=== PATIENT | female | born 1955 | race Caucasian/White ===

== ENCOUNTER 2020-07-31 10:40 | Emergency (ER) | payer OTHER ==
--- OUTSIDE RECORDS SUMMARY | 2020-07-31 10:43 | XMS REPORT | Continuity of Care Document ---
:1955 Author Organization [facility] Address [address] [place] [address] Care Team Providers Name Role Phone ABEL Attending Clinician Unavailable TC Attending Clinician Unavailable LINDA Attending Clinician Unavailable JACQUELINE Attending Clinician Unavailable REHRER Attending Clinician Unavailable PATTIE Attending Clinician Unavailable ABEL Admitting Clinician Unavailable PATTIE Admitting Clinician Unavailable Problems This patient has no known problems. Allergies, Adverse Reactions, Alerts This patient has no known allergies or adverse reactions. Medications This patient has no known medications. Procedures This patient has no known procedures. Encounters Start End Encounter Admission Attending Care Care Encounter Source Date/Time Date/Time Type Type Clinicians Facility Department ID 2020-07-29 2020-07-[address] [facility] [id number] [place] 00:00:00 00:00:00 RAYAN 000 [facility] i 2020-07-27 2020-07-27 Outpatient [facility] [id number] [place] 00:00:00 00:00:00 BELLA 916 Method i 2020-07-27 2020-07-27 Outpatient [facility] [id number] [place] 00:00:00 00:00:00 BELLA 968 Method i 2020-07-27 2020-07-27 Outpatient [facility] [id number] [place] 00:00:00 00:00:00 BELLA 153 Method i 2020-07-27 2020-07-27 Outpatient [facility] [id number] [place] 00:00:00 00:00:00 BELLA 450 Method i 2020-07-27 2020-07-27 Outpatient [facility] [id number] [place] 00:00:00 00:00:00 BELLA 683 Method i 2020-07-27 2020-07-27 Outpatient BHIMARA, [facility] [id number] [place] 00:00:00 00:00:00 BELLA 449 Method i 2020-07-27 2020-07-27 Outpatient BHIMARAJ, [facility] [id number] [place] 00:00:00 00:00:00 BELLA 443 Method i 2020-07-10 2020-07-10 Outpatient LINDA, [facility] [id number] [place] 00:00:00 00:00:00 AHMED 834 Method i 2020-06-19 2020-06-19 Outpatient IMARA, [facility] [id number] [place] 00:00:00 00:00:00 BELLA 103 Method i 2020-06-04 2020-06-04 Outpatient PHILLIPS, [facility] [id number] [place] 00:00:00 00:00:00 PATRICIA 265 Method i 2020-06-01 2020-06-01 Outpatient PHILLIPS, [facility] [id number] [place] 00:00:00 00:00:00 PATRICIA 109 Method i 2019-07-15 2019-07-15 Outpatient [facility], [facility] [id number] [place] 00:00:00 00:00:00 BELLA 486 Method i 2019-07-13 2019-07-13 Emergency REHRER, [facility] [id number] [place] 00:00:00 00:00:00 KHUSHI 518 Method i 2019-07-10 2019-07-10 Outpatient [facility] [id number] [place] 00:00:00 00:00:00 DAX Velazquez [address] 2019-07-09 2019-07-09 Outpatient [facility], [facility] [id number] [place] 00:00:00 00:00:00 BELLA 033 Method i 2019-07-09 2019-07-09 Outpatient [facility], [facility] [id number] [place] 00:00:00 00:00:00 BELLA 443 Method i 2019-07-09 2019-07-09 [facility] [id number] [place] 00:00:00 00:00:00 BELLA [address] 2019-07-09 2019-07-09 Outpatient [facility] [id number] [place] 00:00:00 00:00:00 BELLA [address] 2019-07-09 2019-07-09 Outpatient [facility] [id number] [place] 00:00:00 00:00:00 BELLA [address] 2019-07-09 2019-07-09 Outpatient [facility] [id number] [place] 00:00:00 00:00:00 BELLA [address] Results This patient has no known results.
[2020-07-31] MEDS ORDERED: METHYLPREDNISOLONE 125 MG INJ ONE (11:42)
--- NOTE | 2020-07-31 11:56 | ER ---
Nurse's Notes [facility] Name: Nena Burrows Age: 65 yrs Sex: Female : 1955 Arrival Date: 07/31/2020 Time: 10:43 Bed 17 Private MD: Diagnosis: Allergic contact dermatitis Presentation: 07/31 10:58 Chief complaint: Patient states: Had a procedure done at [facility]. I think it ca1 was the EKG leads/tape that caused the rashes on my body. The rashes came out the same day and it just got worse and worse. C/O of itching at this time. Had reactions to those before but not this bad. Took Benadryl with a little relief. Denies difficulty breathing. Coronavirus screen: Client denies travel out of the [place] in the last 14 days. At this time, the client does not indicate any symptoms associated with coronavirus-19. Ebola Screen: Patient negative for fever greater than or equal to 101.5 degrees Fahrenheit, and additional compatible Ebola Virus Disease symptoms Patient denies exposure to infectious person. Patient denies travel to an Ebola-affected area in the 21 days before illness onset. No symptoms or risks identified at this time. Initial Sepsis Screen: Does the patient meet any 2 criteria? Yes Does the patient have a suspected source of infection? No. Patient's initial sepsis screen is negative. Risk Assessment: Do you want to hurt yourself or someone else? Patient reports no desire to harm self or others. Onset of symptoms was July 29, 2020. 10:58 Method Of Arrival: Ambulatory ca1 10:58 Acuity: CARINE 4 ca1 11:10 Anaphylaxis evaluation, no signs or symptoms of anaphylaxis were noted. rb3 11:10 Onset: The symptoms/episode began/occurred 2 day(s) ago. rb3 Historical: - Allergies: 11:04 Levaquin; ca1 11:04 Codeine; ca1 - Home Meds: 11:04 aspirin 81 mg Oral chew [Active]; ca1 - PMHx: 11:04 None; ca1 - PSHx: 11:04 heart transplant; Heart stents; ca1 - Immunization history:: Flu vaccine is not up to date. - Social history:: Smoking status: Patient denies any tobacco usage or history of. Screenin:10 Abuse screen: Denies threats or abuse. Nutritional screening: No deficits noted. rb3 Tuberculosis screening: No symptoms or risk factors identified. Fall Risk None identified. Assessment: 11:10 General: Appears in no apparent distress. comfortable, Behavior is calm, cooperative. rb3 Pain: Denies pain. Neuro: Level of Consciousness is awake, alert, obeys commands, Oriented to person, place, time, situation. Cardiovascular: Patient's skin is warm and dry. Respiratory: Airway is patent Respiratory effort is even, unlabored, Respiratory pattern is regular, symmetrical. GI: No signs and/or symptoms were reported involving the gastrointestinal system. : No signs and/or symptoms were reported regarding the genitourinary system. Derm: Rash noted that is red, on chest Red circular spots noted where the EKG electrodes were place. PT. c/o itching. 12:09 Reassessment: Patient appears in no apparent distress at this time. No changes from rb3 previously documented assessment. Vital Signs: 10:58 BP 139 / 68; Pulse 87; Resp 16 S; Temp 97.1(TE); Pulse Ox 100% on R/A; Weight 65.77 kg ca1 (R); Height 5 ft. 1 in. (154.94 cm) (R); Pain 0/10; 12:09 BP 132 / 66; Pulse 88; Resp 16; Pulse Ox 100% ; rb3 10:58 Body Mass Index 27.40 (65.77 kg, 154.94 cm) ca1 ED Course: 10:43 Patient arrived in ED. as 11:01 Triage completed. ca1 11:04 Arm band placed on right wrist. ca1 11:10 Patient has correct armband on for positive identification. Bed in low position. Call rb3 light in reach. Side rails up X 1. Pulse ox on. NIBP on. 11:15 Keenan Meyer PA is PHCP. cp 11:15 Keenan Cooper MD is Attending Physician. cp 11:17 Claudia Delgado, GERI is Primary Nurse. rb3 12:30 No provider procedures requiring assistance completed. Patient did not have IV access iw during this emergency room visit. Administered Medications: 11:30 Drug: SOLU-Medrol 125 mg Route: IM; Site: right gluteus; rb3 11:45 Follow up: Response: No adverse reaction rb3 Outcome: 11:55 Discharge ordered by . cp 12:30 Discharged to home ambulatory. iw 12:30 Condition: good 12:30 Discharge instructions given to patient, Instructed on discharge instructions, follow up and referral plans. medication usage, Demonstrated understanding of instructions, follow-up care, medications, Prescriptions given X 2. 12:30 Patient left the ED. iw Signatures: Olga Saucedo Irene RN RN iw Keenan Meyer PA PA cp Acob, Cheryl RN RN ca1 Claudia Delgado RN RN rb3
--- NOTE | 2020-07-31 11:57 | EDPHYS ---
Physician Documentation [facility] Name: Nena Burrows Age: 65 yrs Sex: Female : 1955 Arrival Date: 07/31/2020 Time: 10:43 Bed 17 Private MD: Keenan Interiano HPI: 07/31 11:25 This 65 yrs old Female presents to ER via Ambulatory with complaints of cp Allergic Reaction, Rash. 11:25 The patient presents with rash, of the chest. Onset: The symptoms/episode cp began/occurred 2 day(s) ago. Associated signs and symptoms: Pertinent positives: itching in areas of rash. At home the patient or guardian has treated the symptoms with OTC Benadryl cream. Patient reports having cardiac cath performed [address] [facility]. Reports noticing itching and rash in areas where cardiac electrodes were placed. Patient denies shortness of breath, difficulty swallowing and/or sensation of throat closing. Historical: - Allergies: 11:04 Levaquin; ca1 11:04 Codeine; ca1 - Home Meds: 11:04 aspirin 81 mg Oral chew [Active]; ca1 - PMHx: 11:04 None; ca1 - PSHx: 11:04 heart transplant; Heart stents; ca1 - Immunization history:: Flu vaccine is not up to date. - Social history:: Smoking status: Patient denies any tobacco usage or history of. ROS: 11:30 Skin: Positive for rash, of the chest. cp 11:30 Constitutional: Negative for body aches, chills, fever. cp 11:30 ENT: Negative for sore throat, difficulty swallowing, difficulty handling secretions. 11:30 Respiratory: Negative for cough, shortness of breath, wheezing. 11:30 All other systems are negative. Exam: 11:35 Constitutional: The patient appears in no acute distress, alert, awake, non-toxic, well cp developed, well nourished. 11:35 Head/Face: Normocephalic, atraumatic. cp 11:35 Eyes: Periorbital structures: appear normal, Conjunctiva: normal, no exudate, no injection, Lids and lashes: appear normal, bilaterally. 11:35 ENT: External ear(s): are unremarkable, Nose: is normal, Mouth: Lips: moist, Oral mucosa: moist, Posterior pharynx: Airway: no evidence of obstruction, patent. 11:35 Chest/axilla: Palpation: crepitus, is not appreciated, tenderness, is not appreciated. 11:35 Cardiovascular: Rate: normal, Rhythm: regular, Edema: is not appreciated, JVD: is not appreciated. 11:35 Respiratory: the patient does not display signs of respiratory distress, Respirations: normal, no use of accessory muscles, no retractions, labored breathing, is not present, Breath sounds: are clear throughout, no decreased breath sounds, no stridor, no wheezing. 11:35 Skin: rash can be described as erythematous, on the chest and abdomen, in areas of electrode placement. Vital Signs: 10:58 BP 139 / 68; Pulse 87; Resp 16 S; Temp 97.1(TE); Pulse Ox 100% on R/A; Weight 65.77 kg ca1 (R); Height 5 ft. 1 in. (154.94 cm) (R); Pain 0/10; 12:09 BP 132 / 66; Pulse 88; Resp 16; Pulse Ox 100% ; rb3 10:58 Body Mass Index 27.40 (65.77 kg, 154.94 cm) ca1 MDM: 11:22 Patient medically screened. cp 11:45 Differential diagnosis: anaphylaxis, angioedema, urticaria, contact dermatitis, cp irritant dermatitis. 11:55 Data reviewed: vital signs, nurses notes, and as a result, I will discharge patient. cp 11:55 Counseling: I had a detailed discussion with the patient and/or guardian regarding: the cp historical points, exam findings, and any diagnostic results supporting the discharge/admit diagnosis. ED course: VSS. No signs of anaphylaxis. Will discharge to home for continued monitoring. Administered Medications: 11:30 Drug: SOLU-Medrol 125 mg Route: IM; Site: right gluteus; rb3 11:45 Follow up: Response: No adverse reaction rb3 Disposition: 12:35 Chart complete. cp Disposition: 07/31/20 11:55 Discharged to Home. Impression: Allergic contact dermatitis. - Condition is Stable. - Discharge Instructions: Contact Dermatitis. - Prescriptions for Hydrocortisone 0.5 % Topical Cream - apply 1 application by TOPICAL route every 12 hours As needed; 30 gram. Prednisone 20 mg Oral Tablet - take 2 tablet by ORAL route once daily for 5 days; 10 tablet. - Medication Reconciliation Form, Thank You Letter, Antibiotic Education, Prescription Opioid Use form. - Follow up: Private Physician; When: 2 - 3 days; Reason: Recheck today's complaints. - Problem is new. - Symptoms have improved. Addendum: 08/02/2020 09:08 Co-signature as Attending Physician, Keenan Cooper MD I agree with the assessment and c knox plan of care. Signatures: Keenan Cooper MD MD cha Williams, Irene RN RN iw Keenan Meyer PA PA cp July Contreras, RN RN [facility] Claudia Delgado RN RN rb3 Corrections: (The following items were deleted from the chart) 07/31 12:30 11:55 07/31/2020 11:55 Discharged to Home. Impression: Allergic contact dermatitis. iw Condition is Stable. Forms are Medication Reconciliation Form, Thank You Letter, Antibiotic Education, Prescription Opioid Use. Follow up: Private Physician; When: 2 - 3 days; Reason: Recheck today's complaints. Problem is new. Symptoms have improved. cp
[2020-07-31 12:35] VITALS: BP 139/68; TEMP 97.1; O2SAT 100
== END 2020-07-31 12:30 | disposition home or self-care (01) ==
LOC: ER 10:40
DX: L23.9 Allergic contact dermatitis, unspecified cause (principal); Z94.1 Heart transplant status; Z95.818 Presence of other cardiac implants and grafts; Z79.82 Long term (current) use of aspirin; Z88.1 Allergy status to other antibiotic agents; Z88.5 Allergy status to narcotic agent
CPT/HCPCS: 96372; 99283; J2930

== ENCOUNTER 2021-03-05 16:01 | Emergency (ER) | payer OTHER ==
[2021-03-05 17:24] LABS: Protime INR 0.98
[2021-03-05 17:27] LABS: Absolute Lymphocytes (CBC) 1.7 K/uL (0.7-4.9); Basophils % 0.9 % (0-1.3); Hematocrit 39.9 % (36.0-45.0); Lymphocytes % 26.2 % (15.3-44.8); MPV 7.8 fL (7.6-11.3); RBC Red Blood Cell Count 4.76 M/uL (3.86-4.86)
[2021-03-05] MEDS ORDERED: NA CHLORIDE 0.9% 1,000 ML ONE (17:31)
[2021-03-05 17:38] LABS: ALT/SGPT 35 U/L (12-78); AST/SGOT 26 U/L (15-37); Albumin 3.6 g/dL (3.4-5.0); Alkaline Phosphatase 92 U/L (45-117); BUN Blood Urea Nitrogen 25 mg/dL (7-18); Bicarbonate 22 mmol/L (21-32); Bilirubin Direct < 0.1 mg/dL (0-0.2); Bilirubin Total 0.3 mg/dL (0.2-1.0); Glucose Level 137 mg/dL (74-106); Magnesium 2.2 mg/dL (1.8-2.4); NT PRO-BNP 304 pg/mL (<125); Potassium 4.1 mmol/L (3.5-5.1); Protein, Total 7.8 g/dL (6.4-8.2); Sodium Level 139 mmol/L (136-145); Troponin (Emerg Dept Use Only) < 0.02 ng/mL (0.0-0.045)
--- NOTE | 2021-03-05 17:42 | RAD REPORT ---
EXAM DESCRIPTION: RAD - Chest Single View - 03/05/2021 5:05 pm CLINICAL HISTORY: palpitation COMPARISON: No comparisons FINDINGS: Lines: None. Lungs: No evidence of edema or pneumonia. Pleural: No significant pleural effusions or pneumothorax. Cardiac: The heart size is within normal limits. Bones: No acute fractures. Remote rib fractures. Other: Sternotomy. IMPRESSION: No acute cardiopulmonary disease.
--- NOTE | 2021-03-05 18:31 | EDPHYS ---
Physician Documentation [facility] Name: Nena Burrows Age: 65 yrs Sex: Female : 1955 Arrival Date: 03/05/2021 Time: 16:02 Bed 19 Private MD: ED Physician Kamilla Navarro HPI: 03/05 16:33 This 65 yrs old Female presents to ER via Wheelchair with complaints of ma2 Palpitations. 16:33 The patient presents with a history of heart racing. Onset: The symptoms/episode ma2 began/occurred gradually, 1 hour(s) ago. Associated signs and symptoms: Pertinent negatives: cough, SOB, near-syncope, unusual stressors. Severity of symptoms: At their worst the symptoms were very mild in the emergency department the symptoms have resolved. The patient has not experienced similar symptoms in the past. all started after she tried cbd gum. Historical: - Allergies: 16:08 Codeine; aa5 16:08 Levaquin; aa5 - PMHx: 16:09 Heart Transplant; aa5 16:11 Hypertensive disorder; aa5 - PSHx: 16:09 Heart stent; Heart Transplant; aa5 - Immunization history:: Client reports receiving the 2nd dose of the Covid vaccine. - Social history:: Smoking status: Patient denies any tobacco usage or history of. Patient/guardian denies using alcohol, street drugs, The patient lives with family. - Family history:: not pertinent. ROS: 16:33 Constitutional: Negative for fever, chills, and weight loss. ma2 16:33 All other systems are negative. Exam: 16:33 Constitutional: This is a well developed, well nourished patient who is awake, alert, ma2 and in no acute distress. Head/Face: Normocephalic, atraumatic. Eyes: Pupils equal round and reactive to light, extra-ocular motions intact. Lids and lashes normal. Conjunctiva and sclera are non-icteric and not injected. Cornea within normal limits. Periorbital areas with no swelling, redness, or edema. ENT: Nares patent. No nasal discharge, no septal abnormalities noted. Tympanic membranes are normal and external auditory canals are clear. Oropharynx with no redness, swelling, or masses, exudates, or evidence of obstruction, uvula midline. Mucous membranes moist. Neck: Trachea midline, no thyromegaly or masses palpated, and no cervical lymphadenopathy. Supple, full range of motion without nuchal rigidity, or vertebral point tenderness. No Meningismus. Chest/axilla: Normal chest wall appearance and motion. Nontender with no deformity. No lesions are appreciated. Cardiovascular: Regular rate and rhythm with a normal S1 and S2. No gallops, murmurs, or rubs. Normal PMI, no JVD. No pulse deficits. Respiratory: Lungs have equal breath sounds bilaterally, clear to auscultation and percussion. No rales, rhonchi or wheezes noted. No increased work of breathing, no retractions or nasal flaring. Abdomen/GI: Soft, non-tender, with normal bowel sounds. No distension or tympany. No guarding or rebound. No evidence of tenderness throughout. Skin: Warm, dry with normal turgor. Normal color with no rashes, no lesions, and no evidence of cellulitis. MS/ Extremity: Pulses equal, no cyanosis. Neurovascular intact. Full, normal range of motion. Neuro: Awake and alert, GCS 15, oriented to person, place, time, and situation. Cranial nerves II-XII grossly intact. Motor strength 5/5 in all extremities. Sensory grossly intact. Cerebellar exam normal. Normal gait. Vital Signs: 16:07 BP 125 / 79; Pulse 98; Resp 16 S; Temp 97.3(TE); Pulse Ox 95% on R/A; Weight 65.77 kg aa5 (R); Height 5 ft. 2 in. (157.48 cm) (R); Pain 0/10; 16:33 BP 123 / 86; Pulse 86; Resp 18; Temp 97.6; Pulse Ox 99% on R/A; sl2 17:00 BP 107 / 62; Pulse 87; Resp 18; Temp 97.6; Pulse Ox 98% on R/A; sl2 18:00 BP 112 / 69; Pulse 85; Resp 18; Temp 97.8; Pulse Ox 99% on R/A; sl2 18:45 BP 117 / 67; Pulse 93; Resp 18; Temp 97.8; Pulse Ox 99% on R/A; sl2 16:07 Body Mass Index 26.52 (65.77 kg, 157.48 cm) aa5 MDM: 16:31 Patient medically screened. ma2 16:33 Differential diagnosis: arrythmia, dehydration, stress disorder. Data reviewed: vital ma2 signs, nurses notes. 18:29 Counseling: I had a detailed discussion with the patient and/or guardian regarding: the ma2 historical points, exam findings, and any diagnostic results supporting the discharge/admit diagnosis, the presence of at least one elevated blood pressure reading (>120/80) during this emergency department visit, the need for outpatient follow up. Response to treatment: the patient's symptoms have resolved after treatment. 03/05 16:26 Order name: Basic Metabolic Panel; Complete Time: 17:49 ma2 03/05 16:26 Order name: CBC with Diff; Complete Time: 17:49 ma2 03/05 16:26 Order name: LFT's; Complete Time: 17:49 ma2 03/05 16:26 Order name: Magnesium; Complete Time: 17:49 ma2 03/05 16:26 Order name: NT PRO-BNP; Complete Time: 17:49 ma2 03/05 16:26 Order name: PT-INR; Complete Time: 17:49 ma2 03/05 16:26 Order name: Troponin (emerg Dept Use Only); Complete Time: 17:49 ma2 03/05 16:26 Order name: XRAY Chest (1 view); Complete Time: 17:49 ma2 03/05 16:26 Order name: EKG; Complete Time: 16:27 ma2 03/05 16:26 Order name: Cardiac monitoring; Complete Time: 16:46 ma2 03/05 16:26 Order name: EKG - Nurse/Tech; Complete Time: 16:46 ma2 03/05 16:26 Order name: IV Saline Lock; Complete Time: 16:53 ma2 03/05 16:26 Order name: Labs collected and sent; Complete Time: 18:47 ma2 03/05 16:26 Order name: O2 Per Protocol; Complete Time: 16:53 ma2 03/05 16:26 Order name: O2 Sat Monitoring; Complete Time: 16:53 ma2 Administered Medications: 17:10 Drug: NS 0.9% 1000 ml Route: IV; Rate: 1 bolus; Site: left hand; sl2 19:00 Follow up: Response: No adverse reaction; IV Status: Completed infusion; IV Intake: sl2 1000ml Disposition Summary: 03/05/21 18:30 Discharge Ordered Location: Home ma2 Condition: Stable ma2 Diagnosis - Poisoning by other drugs, medicaments and biological substances, accidental ma2 (unintentional) Followup: ma2 - With: Private Physician - When: Tomorrow - Reason: Continuance of care Discharge Instructions: - Discharge Summary Sheet ma2 - Dizziness, [id number] ma2 Forms: - Medication Reconciliation Form ma2 - Thank You Letter ma2 - Antibiotic Education ma2 - Prescription Opioid Use ma2 Signatures: Dispatcher [employer] [place] Nena Maki, RN RN aa5 Kamilla Navarro MD MD ma2 Guadalupe Miller RN RN sl2
--- NOTE | 2021-03-05 18:31 | ER ---
Nurse's Notes [facility] Name: Nena Burrows Age: 65 yrs Sex: Female : 1955 Arrival Date: 03/05/2021 Time: 16:02 Bed 19 Private MD: Diagnosis: Poisoning by other drugs, medicaments and biological substances, accidental (unintentional) Presentation: 03/05 16:07 Chief complaint: Patient states: son gave her a CBD gummie and started feeling aa5 palpitations after. Pt also states "I feel like I am in a fog". Coronavirus screen: At this time, the client does not indicate any symptoms associated with coronavirus-19. Ebola Screen: No symptoms or risks identified at this time. Initial Sepsis Screen: Does the patient meet any 2 criteria? HR > 90 bpm. Does the patient have a suspected source of infection? No. Patient's initial sepsis screen is negative. Risk Assessment: Do you want to hurt yourself or someone else? Patient reports no desire to harm self or others. Onset of symptoms was February 2021. 16:07 Method Of Arrival: Wheelchair aa5 16:07 Acuity: CARINE 3 aa5 19:32 Note Pt A\\T\\Ox4. Called family for ride home. df1 Triage Assessment: 16:10 General: Appears in no apparent distress. well groomed, Behavior is calm, cooperative, sl2 drowsy. Historical: - Allergies: 16:08 Codeine; aa5 16:08 Levaquin; aa5 - PMHx: 16:09 Heart Transplant; aa5 16:11 Hypertensive disorder; aa5 - PSHx: 16:09 Heart stent; Heart Transplant; aa5 - Immunization history:: Client reports receiving the 2nd dose of the Covid vaccine. - Social history:: Smoking status: Patient denies any tobacco usage or history of. Patient/guardian denies using alcohol, street drugs, The patient lives with family. - Family history:: not pertinent. Screenin:54 Abuse screen: Denies threats or abuse. Nutritional screening: No deficits noted. sl2 Tuberculosis screening: No symptoms or risk factors identified. Fall Risk Gait- Impaired (20 pts.). Assessment: 16:54 Pain: Denies pain. Neuro: No deficits noted. Neuro: No deficits noted. Reports sl2 dizziness, since eating gummies with unkown substance that she was told would "just make her feel calm". Cardiovascular: No deficits noted. Respiratory: No deficits noted. GI: No deficits noted. GI: No deficits noted. : No deficits noted. EENT: No deficits noted. Derm: No deficits noted. Musculoskeletal: No deficits noted. 16:59 Reassessment: Patient c/o dizziness and lightheartedness with impaired gait after sl2 eating a CBD gummie. Vital Signs: 16:07 BP 125 / 79; Pulse 98; Resp 16 S; Temp 97.3(TE); Pulse Ox 95% on R/A; Weight 65.77 kg aa5 (R); Height 5 ft. 2 in. (157.48 cm) (R); Pain 0/10; 16:33 BP 123 / 86; Pulse 86; Resp 18; Temp 97.6; Pulse Ox 99% on R/A; sl2 17:00 BP 107 / 62; Pulse 87; Resp 18; Temp 97.6; Pulse Ox 98% on R/A; sl2 18:00 BP 112 / 69; Pulse 85; Resp 18; Temp 97.8; Pulse Ox 99% on R/A; sl2 18:45 BP 117 / 67; Pulse 93; Resp 18; Temp 97.8; Pulse Ox 99% on R/A; sl2 16:07 Body Mass Index 26.52 (65.77 kg, 157.48 cm) aa5 ED Course: 16:02 Patient arrived in ED. as 16:07 Arm band placed on. aa5 16:08 Triage completed. aa5 16:21 Guadalupe Miller, GERI is Primary Nurse. sl2 16:26 Kamilla Navarro MD is Attending Physician. ma2 16:45 EKG done, by ED staff, reviewed by Kamilla Navarro MD. dh3 16:54 Patient has correct armband on for positive identification. sl2 16:54 Inserted saline lock: 20 gauge in left hand, using aseptic technique. sl2 17:05 XRAY Chest (1 view) In Process Unspecified. EDMS 17:42 No apparent distress. Resting quietly. Pt visited by daughter. Safety Checks: A family 2 member and/or friend is present and encouraged to stay. 18:59 No provider procedures requiring assistance completed. IV discontinued. sl2 Administered Medications: 17:10 Drug: NS 0.9% 1000 ml Route: IV; Rate: 1 bolus; Site: left hand; sl2 19:00 Follow up: Response: No adverse reaction; IV Status: Completed infusion; IV Intake: sl2 1000ml Intake: 19:00 IV: 1000ml; Total: 1000ml. sl2 Outcome: 18:30 Discharge ordered by . ma2 20:05 Discharged to home via wheelchair. df1 20:05 Condition: stable 20:05 Discharge instructions given to patient, Instructed on discharge instructions, follow up and referral plans. Demonstrated understanding of instructions, follow-up care. 20:06 Patient left the ED. df1 Signatures: Dispatcher [employer] Olga Pugh Audri, RN RN aa5 Sugar Hassan 3 Kamilla Navarro MD MD ma2 Ginette Landa df1 Guadalupe Miller RN RN sl2
[2021-03-05 20:16] VITALS: TEMP 97.8; O2SAT 99
[2021-03-05 20:18] VITALS: BP 117/67
== END 2021-03-05 20:06 | disposition home or self-care (01) ==
LOC: ER 16:01
DX: T50.991A Poisoning by other drugs, medicaments and biological substances, accidental (unintentional), initial encounter (principal); Z88.6 Allergy status to analgesic agent
CPT/HCPCS: 96361; 93005; 85025; 80048; 36415; 83735; 85610; 80076; 84484; 83880; 71045; 96360; 99284; J7030